=== PATIENT | female | born 1990 | race African-American/Black ===

== ENCOUNTER 2021-11-21 23:33 | Emergency (ER) | payer MEDICAID ==
[~2021-11-21] VITALS: Ht 167.6 cm; Wt 100.0 kg
[2021-11-22] MEDS ORDERED: PREDNISONE 20MG TABLET PO ONE
[2021-11-22] MEDS ORDERED: ALBUTEROL (0.5%) 2.5MG/0.5ML NEB HHN ONE
[2021-11-22] MEDS ORDERED: IPRATROPIUM BROMIDE (0.02%) 0.5MG/2.5ML NEB HHN ONE
[2021-11-22 01:05] VITALS: BP 145/82
[2021-11-22] MEDS ORDERED: ALBU2.5V13 NEB (01:48)
[2021-11-22] MEDS ORDERED: ALBU6.7H15 INH (01:48)
[2021-11-22] MEDS ORDERED: FLOV44 INH (01:48)
== END 2021-11-22 01:25 | disposition home or self-care (01) ==
LOC: ER 23:33
DX: J45.901 Unspecified asthma with (acute) exacerbation (principal)
CPT/HCPCS: 94640; 99283; J7512; Z7610